=== PATIENT | male | born 1970 | race Caucasian/White ===

== ENCOUNTER 2016-05-31 11:45 | Emergency (ER) | payer OTHER ==
[~2016-05-31] VITALS: Ht 182.9 cm; Wt 133.8 kg
[2016-05-31 11:55] VITALS: BP_SYST 151
[2016-05-31] MEDS ORDERED: NITROGLYCERIN 1 INCH (GM) OINT. TD ONE (12:00)
[2016-05-31 12:14] LABS: BASOPHILS % (AUTO) 0.6 % (0.0-2.0); EOSINOPHILS # (AUTO) 0.2 K/uL (0.0-0.4); EOSINOPHILS % (AUTO) 2.9 % (0.0-4.0); HEMATOCRIT 44.9 % (36-54); HEMOGLOBIN 15.1 g/dL (14.0-18.0); LYMPHOCYTES # (AUTO) 2.5 K/uL (1.0-5.5); LYMPHOCYTES % (AUTO) 31.5 % (20.5-51.5); MEAN CORPUSCULAR HEMOGLOBIN 31 pg (27-31); MEAN CORPUSCULAR HGB CONC 34 % (32-36); MEAN CORPUSCULAR VOLUME 91 fL (79.0-98.0); MONOCYTES # (AUTO) 0.8 K/uL (0.0-1.0); MONOCYTES % (AUTO) 9.6 % (1.7-9.3); NEUTROPHILS # (AUTO) 4.4 K/uL (1.8-7.7); NEUTROPHILS % (AUTO) 55.4 % (40.0-70.0); PLATELET COUNT (AUTO) 186 K/uL (130-430); RED BLOOD CELL COUNT(AUTO) 4.91 MIL/uL (4.2-6.2); RED CELL DISTRIBUTION WIDTH 12.6 % (9.0-15.0); WHITE BLOOD COUNT (AUTO) 7.9 K/uL (4.8-10.8)
[2016-05-31 12:32] LABS: ALBUMIN 3.8 g/dL (3.4-4.8); CALCIUM 9.5 mg/dL (8.4-11.0); CREATININE 1.01 mg/dL (0.55-1.30); POTASSIUM 4.1 mmol/L (3.5-5.1); TOTAL BILIRUBIN 0.5 mg/dL (0.0-1.0); TOTAL PROTEIN, SERUM 7.1 g/dL (6.4-8.3)
[2016-05-31 12:42] LABS: INR 0.9 (0.80-1.20); PROTHROMBIN TIME 10.3 SECS (9.5-12.5)
[2016-05-31 13:41] LABS: BILIRUBIN,URINE NEGATIVE (NEGATIVE); BLOOD, URINE NEGATIVE (NEGATIVE); CLARITY/URINE CLEAR (CLEAR); COLOR,URINE YELLOW (YELLOW); GLUCOSE,URINE NEGATIVE (NEGATIVE); KETONES,URINE NEGATIVE (NEGATIVE); LEUKOCYTE ESTERASE ,URINE NEGATIVE (NEGATIVE); NITRITE, URINE NEGATIVE (NEGATIVE); PROTEIN URINE NEGATIVE (NEGATIVE)
[2016-05-31 15:45] VITALS: BP_SYST 141
== END 2016-05-31 15:45 | disposition short-term general hospital (02) ==
LOC: SED 11:45
DX: R07.9 Chest pain, unspecified (principal); R51 Headache; R42 Dizziness and giddiness; R06.02 Shortness of breath; H53.8 Other visual disturbances; E03.9 Hypothyroidism, unspecified; C80.1 Malignant (primary) neoplasm, unspecified
CPT/HCPCS: 36415; 71010; 80053; 80061; 81003; 83880; 84484; 85025; 85610-TC; 85730-TC; 93005; 99285